=== PATIENT | female | born 1985 | race Hispanic/Latino ===

== ENCOUNTER 2022-05-25 14:21 | Emergency (ER) | payer OTHER ==
[~2022-05-25] VITALS: Ht 162.6 cm; Wt 142.9 kg
[2022-05-25] MEDS ORDERED: METHOCARBAMOL 500 MG TAB PO ONE (15:15)
[2022-05-25] MEDS ORDERED: HYDROCODONE/APAP 10MG-325MG TAB PO ONE (15:15)
[2022-05-25] MEDS ORDERED: NAPROXEN 250 MG TAB PO ONE (15:15)
[2022-05-25] MEDS ORDERED: PREDNISONE 20 MG TAB PO ONE (15:15)
[2022-05-25] MEDS ORDERED: NAPROXEN250 MG PO (16:58)
[2022-05-25] MEDS ORDERED: METHOCARBAMOL750 MG PO (16:58)
[2022-05-25] MEDS ORDERED: PREDNISONE20 MG PO (16:58)
== END 2022-05-25 17:18 | disposition home or self-care (01) ==
LOC: ER 14:30
DX: M54.50 Low back pain, unspecified (principal); M62.830 Muscle spasm of back; I10 Essential (primary) hypertension
CPT/HCPCS: 72100; 99283; J7512